=== PATIENT | male | born 1960 | race African-American/Black ===

== ENCOUNTER 2016-08-24 17:13 | Emergency (ER) | payer SELFPAY ==
[~2016-08-24] VITALS: Ht 180.3 cm; Wt 59.0 kg
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
[2016-08-24 18:10] LABS: BASO % 1 % (0-3); EOS % 2 % (0-3); HEMATOCRIT 33.9 % (39.0-53.0); HEMOGLOBIN 11.2 g/dL (13.0-17.5); LYMPH # 1.6 x10^3/uL (1.0-4.8); LYMPH % 46 % (24-48); MEAN CORPUSCULAR HEMOGLOBIN 30 pg (25-35); MEAN CORPUSCULAR HGB CONC 33 g/dL (31-37); MEAN CORPUSCULAR VOLUME 92 fL (79-100); MONO % 16 % (0-9); NEUT % 36 % (31-73); PLATELET COUNT 239 x10^3/uL (140-400); RED BLOOD COUNT 3.69 x10^6/uL (4.30-5.70); RED CELL DISTRIBUTION WIDTH 14.8 % (11.5-14.5); WHITE BLOOD COUNT 3.5 x10^3/uL (4.0-11.0)
[2016-08-24 18:22] LABS: CALCIUM 8.8 mg/dL (8.5-10.1); CREATININE 0.9 mg/dL (0.7-1.3); GFR 105.6; POTASSIUM 3.9 mmol/L (3.5-5.1)
[2016-08-24 19:21] VITALS: BP 103/63
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
--- NOTE | 2016-08-25 07:41 | RAD ---
EXAM: Chest one view. HISTORY: Chest pain and bilateral shoulder pain. COMPARISON: None. FINDINGS: A frontal view of the chest is obtained. There are no confluent infiltrates. There is no pneumothorax or pleural effusion. The heart is not enlarged. IMPRESSION: 1. No confluent infiltrates.
== END 2016-08-24 19:40 | disposition left against medical advice (07) ==
LOC: EDBD → MERGE 17:22 → ER 17:22
DX: F10.129 Alcohol abuse with intoxication, unspecified (principal); Z95.0 Presence of cardiac pacemaker; Z91.010 Allergy to peanuts; Y90.9 Presence of alcohol in blood, level not specified
CPT/HCPCS: 36415; 71010; 80048; 84484; 85027; 93005; 99285; G0480